=== PATIENT | male | born 1975 | race Caucasian/White ===

== ENCOUNTER → 2020-10-04 10:43 | Outpatient (BNVA) | payer OTHER, SELFPAY | PROVIDERS: PCP Hospitalist; Visit Provider Surgery | DX: L02.11 Cutaneous abscess of neck (principal) | CPT/HCPCS: 99202 ==

== ENCOUNTER → 2020-11-05 15:48 | Outpatient (BNVA) | payer OTHER, SELFPAY | PROVIDERS: PCP Hospitalist; Visit Provider Surgery | DX: L02.11 Cutaneous abscess of neck (principal) | CPT/HCPCS: 99212 ==

== ENCOUNTER 2021-06-06 16:23 | Outpatient (REF) | payer OTHER, SELFPAY ==
[2021-06-06 16:43] LABS: IDNOW Serial# 08D9AD1C; Strep A Nucleic Acid Negative (Negative)
== END 2021-06-06 16:24 | disposition home or self-care (01) ==
LOC: HO.LNP 16:23
PROVIDERS: Visit Provider Internal Medicine
DX: J06.9 Acute upper respiratory infection, unspecified (principal)
CPT/HCPCS: 87651

== ENCOUNTER 2022-02-24 08:42 | Outpatient (REF) | payer OTHER, SELFPAY ==
[2022-02-24 09:13] LABS: Binax Internal Control QC Valid; Binax Now Covid-19 Ag Negative (Negative)
== END 2022-02-24 08:43 | disposition home or self-care (01) ==
LOC: HO.HMGCLDS 08:42
PROVIDERS: Visit Provider Internal Medicine
DX: Z20.822 Contact with and (suspected) exposure to COVID-19 (principal); J06.9 Acute upper respiratory infection, unspecified
CPT/HCPCS: 87811; C9803

== ENCOUNTER 2024-11-29 08:00 | Outpatient (RCR) | payer MEDICAID, OTHER, SELFPAY | END 2025-01-25 14:19 | disposition home or self-care (01) | LOC: HO.WCC 08:00 | PROVIDERS: PCP Physician Assistant; Visit Provider Surgery | DX: E11.622 Type 2 diabetes mellitus with other skin ulcer (principal); L97.812 Non-pressure chronic ulcer of other part of right lower leg with fat layer exposed; L97.222 Non-pressure chronic ulcer of left calf with fat layer exposed; I87.313 Chronic venous hypertension (idiopathic) with ulcer of bilateral lower extremity; E83.50 Unspecified disorder of calcium metabolism; Q82.0 Hereditary lymphedema | CPT/HCPCS: 10060; 11042; 11045; 29581; 87070; 87073; 87077; 87186; 87205; 97597; 97598; 99212; 99213; 99214; 99215 ==